=== PATIENT | male | born 1960 | race Caucasian/White ===

== ENCOUNTER 2019-06-24 18:41 | Inpatient (IN) | payer SELFPAY ==
[~2019-06-24] VITALS: Ht 180.3 cm; Wt 95.8 kg
[2019-06-24 19:07] LABS: BASO # 0.1 x10^3/uL (0.0-0.2); BASO % 1 % (0-3); EOS # 0.4 x10^3/uL (0.0-0.7); EOS % 5 % (0-3); HEMATOCRIT 38.3 % (39.0-53.0); HEMOGLOBIN 12.8 g/dL (13.0-17.5); LYMPH # 2.3 x10^3/uL (1.0-4.8); LYMPH % 32 % (24-48); MEAN CORPUSCULAR HEMOGLOBIN 29 pg (25-35); MEAN CORPUSCULAR HGB CONC 33 g/dL (31-37); MEAN CORPUSCULAR VOLUME 87 fL (79-100); MONO # 0.7 x10^3/uL (0.0-1.1); MONO % 10 % (0-9); NEUT # 3.7 x10^3uL (1.8-7.7); NEUT % 52 % (31-73); PLATELET COUNT 204 x10^3/uL (140-400); RED BLOOD COUNT 4.38 x10^6/uL (4.30-5.70); RED CELL DISTRIBUTION WIDTH 17.8 % (11.5-14.5); WHITE BLOOD COUNT 7.1 x10^3/uL (4.0-11.0)
--- NOTE | 2019-06-24 19:11 | PHYS DOC ---
Adult General Chief Complaint Chief Complaint: CHEST PAIN HPI HPI 58-year-old male [facility]. The pain started about 2 hours prior to arrival as the patient was lying down to go to sleep. He describes the pain as a sharp pain in the left side of his chest pushing through. It radiates up into his neck. He denies shortness of breath or diaphoresis. The patient has a long cardiac history with 8 stents and triple bypass. The patient's pain is similar to previous pain where he had cardiac problems. Patient was feeling completely normal rest of the day. Does have intermittent chest pain at baseline for which he takes nitroglycerin. 3 nitros prior to arrival. He was also given 324 aspirin by EMS. His pain is still an 8 out of 10. He denies fever or chills. Review of Systems Review of Systems Constitutional: Denies fever or chills [] Eyes: Denies change in visual acuity, redness, or eye pain [] HENT: Denies nasal congestion or sore throat [] Respiratory: Denies cough or shortness of breath [] Cardiovascular: No additional information not addressed in HPI [] GI: Denies abdominal pain, nausea, vomiting, bloody stools or diarrhea [] : Denies dysuria or hematuria [] Musculoskeletal: Denies back pain or joint pain [] Integument: Denies rash or skin lesions [] Neurologic: Denies headache, focal weakness or sensory changes [] Endocrine: Denies polyuria or polydipsia [] All other systems were reviewed and found to be within normal limits, except as documented in this note. Allergies Allergies Allergies Coded Allergies Type Severity Reaction Last Updated Verified metformin Allergy Intermediate 06/24/19 Yes Physical Exam Physical Exam Constitutional: Well developed, well nourished, no acute distress, non-toxic appearance. [] HENT: Normocephalic, atraumatic, bilateral external ears normal, oropharynx moist, no oral exudates, nose normal. [] Eyes: PERRLA, EOMI, conjunctiva normal, no discharge. [] Neck: Normal range of motion, no tenderness, supple, no stridor. [] Cardiovascular:Heart rate regular rhythm, no murmur [] Lungs & Thorax: Bilateral breath sounds clear to auscultation [] Abdomen: Bowel sounds normal, soft, no tenderness, no masses, no pulsatile masses. [] Skin: Warm, dry, no erythema, no rash. [] Back: No tenderness, no CVA tenderness. [] Extremities: No tenderness, no cyanosis, no clubbing, ROM intact, no edema. [] Neurologic: Alert and oriented X 3, normal motor function, normal sensory function, no focal deficits noted. [] Psychologic: Affect normal, judgement normal, mood normal. [] Current Patient Data Lab Results Laboratory Tests Test 06/24/19 18:40 White Blood Count 7.1 x10^3/uL (4.0-11.0) Red Blood Count 4.38 x10^6/uL (4.30-5.70) Hemoglobin 12.8 g/dL (13.0-17.5) L Hematocrit 38.3 % (39.0-53.0) L Mean Corpuscular Volume 87 fL (79-100) Mean Corpuscular Hemoglobin 29 pg (25-35) Mean Corpuscular Hemoglobin Concent 33 g/dL (31-37) Red Cell Distribution Width 17.8 % (11.5-14.5) H Platelet Count 204 x10^3/uL (140-400) Neutrophils (%) (Auto) 52 % (31-73) Lymphocytes (%) (Auto) 32 % (24-48) Monocytes (%) (Auto) 10 % (0-9) H Eosinophils (%) (Auto) 5 % (0-3) H Basophils (%) (Auto) 1 % (0-3) Neutrophils # (Auto) 3.7 x10^3uL (1.8-7.7) Lymphocytes # (Auto) 2.3 x10^3/uL (1.0-4.8) Monocytes # (Auto) 0.7 x10^3/uL (0.0-1.1) Eosinophils # (Auto) 0.4 x10^3/uL (0.0-0.7) Basophils # (Auto) 0.1 x10^3/uL (0.0-0.2) EKG EKG Sinus rhythm, rate 55, normal axis, no ST elevations or depressions.[] Radiology/Procedures Radiology/Procedures [] Impressions: PORTABLE CHEST 1V INDICATION: Chest pain. COMPARISON STUDY: 06/01/2019. FINDINGS: Lungs: Normal lung volume. No pulmonary mass or consolidation. The tracheobronchial tree and hilar structures are normal. Pleura: No pleural effusion or pneumothorax. Heart and Mediastinum: Stable cardiomediastinal silhouette and great vessels. Median sternotomy. IMPRESSION: No acute cardiopulmonary process. Electronically signed by: Tila Alva MD (06/24/2019 7:45 PM) [facility] DICTATED AND SIGNED BY: TILA ALVA MD DATE: 06/24/191944 CC: OSCAR THOMAS DO; PCP,NO ~ Course & Med Decision Making Course & Med Decision Making Pertinent Labs and Imaging studies reviewed. (See chart for details) The patient has been given 2 mg of morphine for pain. I have also placed him on 1 L nasal cannula. His labs are unremarkable. Urine is negative. His EKG is negative for acute findings. I will admit the patient to the hospital for trending and further observation. I spoke with Dr. Fernandez and he has accepted the patient for admission. [] Dragon Disclaimer Dragon Disclaimer This electronic medical record was generated, in whole or in part, using a voice recognition dictation system. The HEART Score for CP Pts HEART Score for Chest Pain: HEART Score for Chest Pain Response (Comments) Value History Moderately Suspicious 1 ECG Normal 0 Age >45 - < 65 1 Risk Factors >3 Risk Factors or Hx CAD 2 Troponin < Normal Limit 0 Total 4 Risk Factors: Risk Factors: DM, Current or recent (<one month) smoker, HTN, HLP, family history of CAD, obesity. Risk Scores: Score 0 - 3: 2.5% MACE over next 6 weeks - Discharge Home Score 4 - 6: 20.3% MACE over next 6 weeks - Admit for Clinical Observation Score 7 - 10: 72.7% MACE over next 6 weeks - Early Invasive Strategies Departure Departure: Impression: Primary Impression: Chest pain Disposition: ADMITTED INPATIENT Admitting Physician: Yaniv Fernandez Condition: STABLE Problem Qualifiers Primary Impression: Chest pain Chest pain type: precordial pain Qualified Codes: R07.2 - Precordial pain OSCAR THOMAS DO Jun 24, 2019 19:11
[2019-06-24 19:14] LABS: CALCIUM 8.8 mg/dL (8.5-10.1); GFR 76.5; POTASSIUM 4.4 mmol/L (3.5-5.1)
[2019-06-24 19:27] LABS: ALBUMIN 3.9 g/dL (3.4-5.0); ALBUMIN/GLOBULIN RATIO 1.3 (1.0-1.7); TOTAL BILIRUBIN 0.2 mg/dL (0.2-1.0); TOTAL PROTEIN 6.8 g/dL (6.4-8.2)
[2019-06-24] MEDS ORDERED: MORPHINE SULFATE 2 MG/ML DISP.SYRIN. IV ONE (19:30)
[2019-06-24 19:47] LABS: CLARITY,URINE CLEAR; COLOR,URINE YELLOW
--- NOTE | 2019-06-24 19:47 | RAD ---
PORTABLE CHEST 1V INDICATION: Chest pain. COMPARISON STUDY: 06/01/2019. FINDINGS: Lungs: Normal lung volume. No pulmonary mass or consolidation. The tracheobronchial tree and hilar structures are normal. Pleura: No pleural effusion or pneumothorax. Heart and Mediastinum: Stable cardiomediastinal silhouette and great vessels. Median sternotomy. IMPRESSION: No acute cardiopulmonary process. Electronically signed by: Adair Ace MD (06/24/2019 7:45 PM) [facility]
[2019-06-24 19:48] LABS: BACTERIA,URINE 0 /HPF (0-FEW); BILIRUBIN,URINE NEG (NEG); GLUCOSE,URINE >=1000 mg/dL (NEG); NITRITE,URINE NEG (NEG); RBC,URINE 0 /HPF (0-2); UROBILINOGEN,URINE 0.2 mg/dL (0.2 mg/dL); WBC,URINE RARE /HPF (0-4)
[2019-06-24] MEDS ORDERED: ONDANSETRON PF 4 MG/2 ML VIAL. IV PRN (20:15)
[2019-06-24] MEDS ORDERED: MORPHINE SULFATE 2 MG/ML DISP.SYRIN. IV PRN (20:15)
[2019-06-24] MEDS ORDERED: NITROGLYCERIN SUBLINGUAL 0.4 MG BOTTLE OF 25. SL PRN (20:15)
[2019-06-24 21:46] VITALS: BP 113/62
--- NOTE | 2019-06-24 22:00 | EKG ---
[address] [address] Test Date: 2019-06-24 Test Time: 18:43:20 Pat Name: ARTURO LOWERY Department: Room: Gender: M [employer] Licensee: : 1960 Requested By: OSCAR THOMAS Order Number: [id number] Reading MD: Measurements Intervals [place] Rate: 55 P: 48 RI: 120 QRS: 21 QRSD: 100 T: 35 QT: 432 QTc: 415 Interpretive Statements SINUS RHYTHM QRS(T) CONTOUR ABNORMALITY CONSIDER ANTEROLATERAL MYOCARDIAL DAMAGE POSSIBLY ABNORMAL ECG RI6.01 No previous ECG available for comparison
[2019-06-24] MEDS ORDERED: INSU100I17 SQ (23:15)
[2019-06-24] MEDS ORDERED: ATORVASTATIN CA80 MG PO (23:15)
[2019-06-24] MEDS ORDERED: INSU100I13 SQ (23:15)
[2019-06-24] MEDS ORDERED: LOSA25TA11 PO (23:15)
[2019-06-24] MEDS ORDERED: ALBU2.5V8 IH (23:15)
[2019-06-24] MEDS ORDERED: NITR0.4T22 SL (23:15)
[2019-06-24] MEDS ORDERED: FERR325T14 PO (23:15)
[2019-06-24] MEDS ORDERED: ISOS30TA4 PO (23:15)
[2019-06-24] MEDS ORDERED: GUAI400T63 PO (23:15)
[2019-06-24] MEDS ORDERED: EMPA25TA PO (23:15)
[2019-06-24] MEDS ORDERED: ARIP5TAB13 PO (23:15)
[2019-06-24] MEDS ORDERED: ASPI81TA59 PO (23:15)
[2019-06-24] MEDS ORDERED: METO50TA6 PO (23:15)
[2019-06-24] MEDS ORDERED: SUCR1TAB PO (23:15)
[2019-06-24] MEDS ORDERED: BENZ-8 PO (23:15)
[2019-06-24] MEDS ORDERED: CLOP75TA PO (23:15)
[2019-06-24] MEDS ORDERED: PANT40TA5 PO (23:15)
[2019-06-25 00:34] VITALS: BP 108/63
--- NOTE | 2019-06-25 01:08 | NUR ---
The patient, ARTURO LOWERY, 58 y/o, M admitted by AMMY FRANKS MD, was given written information regarding hospital policies, unit procedures and contact persons. Health history and home medications were verified with patient. Bed locked and in lowest position, call light within reach. Valuables were checked and left with patient.
[2019-06-25 06:09] VITALS: BP 142/78
[2019-06-25] MEDS ORDERED: ALBUTEROL SULFATE 2.5 MG/3 ML NEBU. IH PRN (10:45)
[2019-06-25] MEDS ORDERED: LOSARTAN 25 MG TABLET. PO SCH (11:15)
[2019-06-25] MEDS ORDERED: FERROUS SULFATE 325 MG TABLET. PO SCH (11:15)
[2019-06-25] MEDS ORDERED: PANTOPRAZOLE 40 MG TABLET. PO SCH (11:15)
[2019-06-25] MEDS ORDERED: METOPROLOL TART IMMED RELEASE 50 MG TABLET PO SCH (11:15)
[2019-06-25] MEDS ORDERED: ISOSORBIDE MONONITRATE ER 30 MG TAB.ER.24H PO SCH (11:15)
[2019-06-25] MEDS ORDERED: NITROGLYCERIN SUBLINGUAL 0.4 MG BOTTLE OF 25. SL PRN (11:15)
[2019-06-25] MEDS ORDERED: ASPIRIN 81 MG TAB.CHEW PO SCH (11:15)
[2019-06-25] MEDS ORDERED: CLOPIDOGREL BISULFATE 75 MG TABLET PO SCH (11:15)
[2019-06-25] MEDS ORDERED: SUCRALFATE 1 GM TABLET. PO SCH (11:30)
[2019-06-25] MEDS ORDERED: INSULIN LISPRO 300 UNITS/3 ML VIAL. SQ SCH (12:00)
--- NOTE | 2019-06-25 12:17 | SSS ---
ADMIT DATE: 06/25/2019 HISTORY OF PRESENT ILLNESS: The patient is a 58-year-old male patient who came to the Emergency Room complaining of chest pain that started about 2 hours prior to arrival to the Emergency Room. He was lying down to go to sleep. Described the pain as sharp pain in the left side of his chest, radiating to his neck. Denied any shortness of breath or diaphoresis. Denied any nausea or vomiting. He rated his pain as about 8/10 in severity. The patient was feeling completely normal the whole day. He has sometimes intermittent chest pain for which she takes nitroglycerin. He took actually 3 nitroglycerins prior to arrival and was given 324 mg of aspirin by EMS. When he arrived, the pain was 8/10 in severity. He was extensively investigated, has had an EKG, which showed that the patient was in sinus rhythm at a rate of 55 beats per minute, normal axis, no ST segment elevation or depression. Chest x-ray was unremarkable, has had his first set of cardiac enzymes showed troponin to be less than 0.017. He was admitted overnight and has 2 more sets of cardiac enzymes, ___ also ruled out myocardial infarction. He was seen in consultation by our roll forming supervisor and was offered to do further workup as an outpatient. Given his extensive cardiac history, the patient basically stated that he would like to follow with his roll forming supervisor at the [facility]. PAST MEDICAL HISTORY: Significant for coronary artery disease, status post TX about 10 years ago. He has had 3 stents and then has an open heart surgery with coronary artery bypass graft surgery and five stents thereafter, the last one was done in the [facility] about a year ago, has hypertension, hyperlipidemia and chronic bronchitis. PAST SURGICAL HISTORY: Significant for PCI with stent deployment, coronary artery bypass graft, and surgery for broken nose. ALLERGIES: HE IS ALLERGIC TO METFORMIN. MEDICATIONS: He is currently on albuterol sulfate 2 puffs twice a day, ferrous sulfate 325 mg once a day, Plavix 75 mg once a day, atorvastatin, calcium 80 mg at bedtime, isosorbide mononitrate 30 mg daily. He is on nitroglycerin 0.4 mg sublingually every 5 minutes x 3, metoprolol tartrate 50 mg twice a day, losartan potassium 25 mg once a day, aspirin 81 mg once a day, aripiprazole for Abilify 2.5 mg once a day, benzonatate 100 mg 3 times a day, guaifenesin 400 mg twice a day, sucralfate 1 gram 4 times a day, Protonix 40 mg daily. He is on Lantus that his NovoLog 20 units before meals and Lantus SoloSTAR 32 units at bedtime. He is on Jardiance 25 mg daily. FAMILY HISTORY: He has one brother older and has diabetes. He has 2 younger brothers and one younger sister, all healthy. His father at the age of 60 because of congestive heart failure. Mother is still alive at age of 78 and apparently healthy. SOCIAL HISTORY: He is , has one daughter. Does not smoke, drink alcohol or use any drugs. He used to do methamphetamine and the last he smoked methamphetamine was about a month and half ago. REVIEW OF SYSTEMS: Grossly unremarkable. PHYSICAL EXAMINATION: GENERAL: On arrival to the Emergency Room, he looked well and was clearly in no apparent respiratory distress. No pallor, jaundice, cyanosis or thyromegaly. No jugular venous distention. No limb edema. VITAL SIGNS: His heart rate was 57, blood pressure 121/62, temperature 97.8, respiratory rate was 18 and oxygen saturation was 97%. HEAD, EYES, EARS, NOSE AND THROAT: Showed normocephalic, atraumatic. NECK: Supple. HEART: Showed normal first and second heart sounds with no gallop or murmur. CHEST: Clear to auscultation. No crepitation or rhonchi. ABDOMEN: Distended, soft, nontender. No guarding or rigidity. No organomegaly. All hernial orifice intact. Bowel sounds normal. NEUROLOGIC: He was awake, alert. All his cranial nerves are grossly intact. EXTREMITIES: He moves extremities without difficulty, ambulates with and without a cane. LABORATORY DATA: On admission showed a white cell count 7100, hemoglobin 13, hematocrit 38, MCV 87, and platelet count 204,000. Serum sodium was 139, potassium 4.4, chloride 103, bicarbonate 25, anion gap of 11, BUN 19, creatinine 1, estimated GFR was 76 mL per minute, her glucose 133, calcium was 8.8. Total bilirubin, AST, ALT, alkaline phosphatase were normal. He has 3 sets of cardiac enzymes that showed troponin to be less than 0.017 and acute myocardial infarction was ruled out. His total protein was 6.8, albumin 3.9. Urinalysis showed large amount of glucose, but otherwise unremarkable. ASSESSMENT AND PLAN: Chest pain, acute myocardial infarction ruled out. Other medical problems include coronary artery disease status post TX, status post CABG and PCI with stent deployment x 8, hypertension, hyperlipidemia, type 2 diabetes. The patient was advised to follow with his roll forming supervisor at the [facility]. AMMY FRANKS MD DR: PEYMAN/klaus JOB#: [id number] / [id number]
--- NOTE | 2019-06-25 12:43 | PDOC2 ---
CARDIAC CONSULT DATE OF CONSULT Date Of Consult DATE: 06/25/19 TIME: 12:38 REASON FOR CONSULT Reason for Consult Chest pain REFERRING PHYSICIAN Referring Physician Dr. Fernandez SOURCE Source: Chart review, Patient HPI History of Present Illness The patient is a 58-year-old male who was admitted last night from the emergency room due to episodes of chest discomfort. His EKG showed no acute ischemic changes. He was monitored overnight and his troponins have been normal 3. Chest x-ray shows no acute processes. His he is pain-free this morning. He does have an extensive cardiac history including previous bypass surgery and a number of stents since his bypass. Reports that he had a normal stress test last year in February or March at the [facility]. PAST MEDICAL HISTORY Cardiovascular: CAD, CHF, HTN, hyperipidemia Pulmonary: Pneumonia PAST SURGICAL HISTORY Past Surgical History: CABG, Other (coronary stents, repair of a broken nose) FAMILY HISTORY Family History: Heart Disease, Hypertension SOCIAL HISTORY Smoke: No ALCOHOL: none CURRENT MEDICATIONS Current Medications Current Medications Morphine Sulfate (Morphine 2mg Syringe) 2 mg 1X ONCE IV Last administered on 06/24/19at 19:28; Start 06/24/19 at 19:30; Stop 06/24/19 at 19:31; Status DC Ondansetron HCl (Zofran) 4 mg PRN Q4HRS PRN IV NAUSEA/VOMITING; Start 06/24/19 at 20:15; Stop 06/25/19 at 11:44; Status DC Morphine Sulfate (Morphine 2mg Syringe) 2 mg PRN Q2HR PRN IV PAIN Last administered on 06/24/19at 23:46; Start 06/24/19 at 20:15; Stop 06/25/19 at 11:44; Status DC Nitroglycerin (Nitrostat) 0.4 mg PRN Q5MIN PRN SL CHEST PAIN; Start 06/24/19 at 20:15; Stop 06/25/19 at 11:04; Status DC Albuterol Sulfate (Ventolin) 2.5 mg PRN BID PRN IH SHORTNESS OF BREATH; Start 06/25/19 at 10:45; Stop 06/25/19 at 11:44; Status DC Aripiprazole (Abilify) 2.5 mg HS PO ; Start 06/25/19 at 21:00; Stop 06/25/19 at 11:44; Status DC Aspirin (Children'S Aspirin) 81 mg DAILY PO ; Start 06/25/19 at 11:15; Stop 06/25/19 at 11:44; Status DC Benzonatate (Tessalon Perle) 100 mg TID PO ; Start 06/25/19 at 14:00; Stop 06/25/19 at 11:44; Status DC Clopidogrel Bisulfate (Plavix) 75 mg DAILY PO ; Start 06/25/19 at 11:15; Stop 06/25/19 at 11:44; Status DC Ferrous Sulfate (Feosol) 325 mg DAILY PO ; Start 06/25/19 at 11:15; Stop 06/25/19 at 11:44; Status DC Isosorbide Mononitrate (Imdur) 30 mg DAILY PO ; Start 06/25/19 at 11:15; Stop 06/25/19 at 11:44; Status DC Losartan Potassium (Cozaar) 25 mg DAILY PO ; Start 06/25/19 at 11:15; Stop 06/25/19 at 11:44; Status DC Metoprolol Tartrate (Lopressor) 50 mg BID PO ; Start 06/25/19 at 11:15; Stop 06/25/19 at 11:44; Status DC Nitroglycerin (Nitrostat) 0.4 mg PRN Q5MIN PRN SL CHEST PAIN; Start 06/25/19 at 11:15; Stop 06/25/19 at 11:44; Status DC Pantoprazole Sodium (Protonix) 40 mg DAILY PO ; Start 06/25/19 at 11:15; Stop 06/25/19 at 11:44; Status DC Sucralfate (Carafate) 1 gm QIDACHS PO ; Start 06/25/19 at 11:30; Stop 06/25/19 at 11:44; Status DC Atorvastatin Calcium (Lipitor) 80 mg QHS PO ; Start 06/25/19 at 21:00; Stop 06/25/19 at 11:44; Status DC Non-Formulary Medication (Empagliflozin (Jardiance)) 25 mg DAILY PO ; Start 06/26/19 at 09:00; Stop 06/25/19 at 11:44; Status DC Guaifenesin (Mucinex Er) 600 mg BID PO ; Start 06/25/19 at 21:00; Stop 06/25/19 at 11:44; Status DC Insulin Human Lispro (HumaLOG) 20 units TIDWMEALS SQ ; Start 06/25/19 at 12:00; Stop 06/25/19 at 11:44; Status DC Insulin Glargine (Lantus Syringe) 32 unit QHS SQ ; Start 06/25/19 at 21:00; Stop 06/25/19 at 11:44; Status DC Active Scripts Active Reported Sucralfate 1 Gm Tablet 1 Tab PO QIDACHS Pantoprazole Sodium 40 Mg Tablet.dr 1 Tab PO DAILY NITROGLYCERIN SubLingual (Nitroglycerin) 0.4 Mg Tab.subl 1 Tab SL UD 1st sign of attack; may repeat every 5 mins; if pain persists after 3 in 15 min, medical attention is recommended Metoprolol Tartrate 50 Mg Tablet 1 Tab PO BID Losartan Potassium (Losartan Potassium) 25 Mg Tablet 25 Mg PO DAILY Isosorbide Mononitrate Er (Isosorbide Mononitrate) 30 Mg Tab.er.24h 1 Tab PO DAILY Lantus Solostar (Insulin Glargine,Hum.rec.anlog) 100 Unit/1 Ml Insuln.pen 32 Unit SQ QHS Novolog Flexpen (Insulin Aspart) 100 Unit/1 Ml Insuln.pen 20 Unit SQ TIDAC Guaifenesin 400 Mg Tablet 1 Tab PO BID Ferrous Sulfate 325 Mg Tablet 1 Tab PO DAILY Jardiance (Empagliflozin) 25 Mg Tablet 25 Mg PO DAILY Clopidogrel (Clopidogrel Bisulfate) 75 Mg Tablet 1 Tab PO DAILY Benzonatate 100 Mg Capsule 1 Cap PO TID Atorvastatin Calcium 80 Mg Tablet 80 Mg PO QHS Children's Aspirin (Aspirin) 81 Mg Tab.chew 81 Mg PO DAILY Abilify (Aripiprazole) 5 Mg Tablet 0.5 Tab PO HS Ventolin Hfa Inhaler (Albuterol Sulfate) 18 Gm Hfa.aer.ad 2 Puff IH BID PRN ALLERGIES Allergies: Coded Allergies: metformin (Verified Allergy, Intermediate, 06/24/19) ROS General: YES: Fatigue Cardiovascular: yes: Chest Pain PHYSICAL EXAM General: No acute distress HEENT: Atraumatic Lungs: Clear to auscultation Heart: Regular rate Abdomen: Normal bowel sounds VITALS Vital Signs Vital Signs Date Time Temp Pulse Resp B/P (MAP) Pulse Ox O2 Delivery O2 Flow Rate FiO2 06/25/19 08:35 Room Air 06/25/19 06:09 97.8 52 18 142/78 (99) 98 LABS LABS Laboratory Tests Test 06/24/19 18:40 06/24/19 19:30 06/24/19 23:00 06/25/19 02:20 White Blood Count 7.1 x10^3/uL (4.0-11.0) Red Blood Count 4.38 x10^6/uL (4.30-5.70) Hemoglobin 12.8 g/dL (13.0-17.5) Hematocrit 38.3 % (39.0-53.0) Mean Corpuscular Volume 87 fL (79-100) Mean Corpuscular Hemoglobin 29 pg (25-35) Mean Corpuscular Hemoglobin Concent 33 g/dL (31-37) Red Cell Distribution Width 17.8 % (11.5-14.5) Platelet Count 204 x10^3/uL (140-400) Neutrophils (%) (Auto) 52 % (31-73) Lymphocytes (%) (Auto) 32 % (24-48) Monocytes (%) (Auto) 10 % (0-9) Eosinophils (%) (Auto) 5 % (0-3) Basophils (%) (Auto) 1 % (0-3) Neutrophils # (Auto) 3.7 x10^3uL (1.8-7.7) Lymphocytes # (Auto) 2.3 x10^3/uL (1.0-4.8) Monocytes # (Auto) 0.7 x10^3/uL (0.0-1.1) Eosinophils # (Auto) 0.4 x10^3/uL (0.0-0.7) Basophils # (Auto) 0.1 x10^3/uL (0.0-0.2) Sodium Level 139 mmol/L (136-145) Potassium Level 4.4 mmol/L (3.5-5.1) Chloride Level 103 mmol/L (98-107) Carbon Dioxide Level 25 mmol/L (21-32) Anion Gap 11 (6-14) Blood Urea Nitrogen 19 mg/dL (8-26) Creatinine 1.0 mg/dL (0.7-1.3) Estimated GFR (Cockcroft-Gault) 76.5 BUN/Creatinine Ratio 19 (6-20) Glucose Level 133 mg/dL (70-99) Calcium Level 8.8 mg/dL (8.5-10.1) Total Bilirubin 0.2 mg/dL (0.2-1.0) Aspartate Amino Transf (AST/SGOT) 10 U/L (15-37) Alanine Aminotransferase (ALT/SGPT) 29 U/L (16-63) Alkaline Phosphatase 119 U/L (46-116) Troponin I Quantitative < 0.017 ng/mL (0-0.055) < 0.017 ng/mL (0-0.055) < 0.017 ng/mL (0-0.055) TZ-Lii-U-Type Natriuretic Peptide 112 pg/mL (0-124) Total Protein 6.8 g/dL (6.4-8.2) Albumin 3.9 g/dL (3.4-5.0) Albumin/Globulin Ratio 1.3 (1.0-1.7) Urine Collection Type Unknown Urine Color Yellow Urine Clarity Clear Urine pH 5.5 Urine Specific [place] 1.015 Urine Protein Neg (NEG-TRACE) Urine Glucose (UA) >=1000 mg/dL (NEG) Urine Ketones (Stick) Neg mg/dL (NEG) Urine Blood Neg (NEG) Urine Nitrite Neg (NEG) Urine Bilirubin Neg (NEG) Urine Urobilinogen Dipstick 0.2 mg/dL (0.2 mg/dL) Urine Leukocyte Esterase Neg (NEG) Urine RBC 0 /HPF (0-2) Urine WBC Rare /HPF (0-4) Urine Squamous Epithelial Cells None /LPF Urine Bacteria 0 /HPF (0-FEW) Test 06/25/19 08:02 Glucose (Fingerstick) 162 mg/dL (70-99) IMAGES IMAGES CXR with no acute processes. EKG EKG EKG shows a sinus rhythm with no acute ischemic changes. ASSESSMENT/PLAN Assessment/Plan 1. Chest pain. Pain has resolved. No acute EKG changes. Troponin negative 3. Extensive cardiac history as above. Discussed with the patient. After discussion I believe the patient is stable for discharge and [facility] 2. Coronary artery disease status post bypass surgery and coronary stenting. As noted above no acute ischemic EKG changes. No elevation in troponin. Continue medical treatment. 3. Hypertension. Improved control. Continue home medications. 4. Hyperlipidemia. Continue statins. Thank you for allowing us to participate in the care of your patient. FRANCISCO MANUEL MD Jun 25, 2019 12:43
[2019-06-25] MEDS ORDERED: BENZONATATE 100 MG CAPSULE. PO SCH (14:00)
[2019-06-25] MEDS ORDERED: ATORVASTATIN CALCIUM 20 MG TABLET PO SCH (21:00)
[2019-06-25] MEDS ORDERED: INSULIN GLARGINE SYRINGE. SQ SCH (21:00)
[2019-06-25] MEDS ORDERED: ARIPiprazole 5 MG TABLET PO SCH (21:00)
[2019-06-26] MEDS ORDERED: NON FORMULARY ITEM (Empagliflozin (Jardiance) 25 MG) PO SCH (09:00)
== END 2019-06-25 11:43 | disposition home or self-care (01) | DRG 313 ==
LOC: ER 18:41 → 1 SOUTH 20:11
PROVIDERS: ADMIT Internal Medicine; ATTEND Internal Medicine
DX: R07.89 Other chest pain (principal); I25.10 Atherosclerotic heart disease of native coronary artery without angina pectoris; I25.2 Old myocardial infarction; Z95.5 Presence of coronary angioplasty implant and graft; Z95.1 Presence of aortocoronary bypass graft; J42 Unspecified chronic bronchitis; I50.9 Heart failure, unspecified; I11.0 Hypertensive heart disease with heart failure; E78.5 Hyperlipidemia, unspecified; Z88.8 Allergy status to other drugs, medicaments and biological substances; E11.9 Type 2 diabetes mellitus without complications; Z82.49 Family history of ischemic heart disease and other diseases of the circulatory system; Z83.3 Family history of diabetes mellitus; Z87.891 Personal history of nicotine dependence
CPT/HCPCS: 36415; 71045; 80053; 81001; 82947; 83880; 84484; 85025; 93005; 96374; 99406; J1815; J2270; 99285-25